=== PATIENT | female | born 1955 | race Caucasian/White ===

== ENCOUNTER 2018-10-29 07:43 | Emergency (ER) | payer BC, MEDICARE ==
[~2018-10-29] VITALS: Ht 162.6 cm; Wt 115.5 kg
--- NOTE | 2018-10-29 08:06 | NUR ---
pt. states she went to her doctor for a medical clearance for eye surgery... doctor told her that she had an abnormal ekg and her blood pressure was elevated 170s/90... pt. states she quit taking her lasix 2 weeks ago, because she felt dehydrated. pressure this am at home was 200/120 so she took 2 blood pressure pills this am... pressure is now 110/59
[2018-10-29 08:47] LABS: ALANINE AMINOTRANSFERASE 20 U/L (12-78); ALBUMIN 3.4 G/DL (3.4-5.0); ALBUMIN/GLOBULIN RATIO 0.9 (1.1-1.5); ALKALINE PHOSPHATASE 102 IU/L (46-116); ANION GAP 11 (8-16); ASPARTATE AMINO TRANSFERASE 14 U/L (10-37); BILIRUBIN,TOTAL 0.6 MG/DL (0.1-1.0); BLOOD UREA NITROGEN 14 MG/DL (7-18); BUN/CREATININE RATIO 17.3 (6.6-38.0); CALCIUM 9.7 MG/DL (8.5-10.1); CHLORIDE 103 MMOL/L (99-107); CREATININE 0.81 MG/DL (0.40-0.90); GLUCOSE 150 MG/DL (70-104); POTASSIUM 3.5 MMOL/L (3.5-5.1); SODIUM 138 MMOL/L (135-145); TOTAL CARBON DIOXIDE 24.3 MMOL/L (24-32); TOTAL PROTEIN 7.2 G/DL (6.4-8.2); eGFR 71 ML/MIN
[2018-10-29 08:54] LABS: PARTIAL THROMBOPLASTIN TIME 29 SECONDS (22-32)
[2018-10-29 08:59] LABS: EOSINOPHILS # (AUTO) 0.2 X10'3 (0-0.9); MEAN CORPUSCULAR HGB CONC 33.5 g/dL (33.0-36.5); MONOCYTES # (AUTO) 0.4 X10'3 (0-0.9); NEUTROPHILS # (AUTO) 3.4 X10'3 (1.8-7.7); PLATELET COUNT 177 X10'3 (140-440)
[2018-10-29 09:01] LABS: BASOPHILS % (AUTO) 0.6 % (0-1); EOSINOPHILS % (AUTO) 2.6 % (0-6); HEMATOCRIT 44.2 % (35.0-45.0); HEMOGLOBIN 14.8 g/dl (12.0-16.0); LYMPHOCYTES % (AUTO) 32.5 % (21-51); MEAN CORPUSCULAR HEMOGLOBIN 32.2 PG (27.0-31.0); MEAN CORPUSCULAR VOLUME 96.1 FL (78-98); MEAN PLATELET VOLUME 12.9 FL (7.4-10.4); MONOCYTES % (AUTO) 7.3 % (2-12); RED BLOOD COUNT 4.59 X10'6 (4.20-5.60); RED CELL DISTRIBUTION WIDTH 13.6 % (11.5-14.5)
[2018-10-29 10:55] VITALS: BP 115/49
== END 2018-10-29 11:01 | disposition home or self-care (01) ==
LOC: ER 07:44
DX: R07.89 Other chest pain (principal); I10 Essential (primary) hypertension; E78.00 Pure hypercholesterolemia, unspecified; E11.9 Type 2 diabetes mellitus without complications; Z95.5 Presence of coronary angioplasty implant and graft
CPT/HCPCS: 36415; 71045; 80053; 82948; 84484; 85025; 85610; 85730; 93005; 99284

== ENCOUNTER 2019-09-30 13:34 | Emergency (ER) | payer BC, MEDICARE ==
[~2019-09-30] VITALS: Ht 160 cm; Wt 114.1 kg
[2019-09-30 13:39] VITALS: BP 132/64
[2019-09-30] MEDS ORDERED: HYDROcodone/acetaminophen 5mg/325mg tablet PO ONE (14:20)
[2019-09-30] MEDS ORDERED: HYDR-3965 PO (15:19)
== END 2019-09-30 15:42 | disposition home or self-care (01) ==
LOC: ER 13:34
DX: S20.212A Contusion of left front wall of thorax, initial encounter (principal); I50.9 Heart failure, unspecified; E78.00 Pure hypercholesterolemia, unspecified; I11.0 Hypertensive heart disease with heart failure; E11.9 Type 2 diabetes mellitus without complications; Z98.61 Coronary angioplasty status; Z79.899 Other long term (current) drug therapy; F17.200 Nicotine dependence, unspecified, uncomplicated; W01.0XXA Fall on same level from slipping, tripping and stumbling without subsequent striking against object, initial encounter; Y93.89 Activity, other specified; Y92.89 Other specified places as the place of occurrence of the external cause; Y99.8 Other external cause status
CPT/HCPCS: 74176; 99284

== ENCOUNTER 2020-10-24 10:53 | Emergency (ER) | payer BC ==
[~2020-10-24] VITALS: Ht 154.9 cm; Wt 114.0 kg
[2020-10-24 11:27] VITALS: BP 179/93
[2020-10-24] MEDS ORDERED: triamcinolone acetonide 40mg/ml inj IJ ONE (14:05)
[2020-10-24] MEDS ORDERED: PRED10TA23 PO (14:07)
[2020-10-24] MEDS ORDERED: PRED20TA PO (14:11)
== END 2020-10-24 14:22 | disposition home or self-care (01) ==
LOC: ER 10:54
DX: L50.9 Urticaria, unspecified (principal); R21 Rash and other nonspecific skin eruption; I11.0 Hypertensive heart disease with heart failure; I50.9 Heart failure, unspecified; E78.00 Pure hypercholesterolemia, unspecified; E11.9 Type 2 diabetes mellitus without complications; Z98.890 Other specified postprocedural states; Z79.899 Other long term (current) drug therapy
CPT/HCPCS: 99283; J3301

== ENCOUNTER 2021-01-03 17:23 | Emergency (ER) | payer BC ==
[~2021-01-03] VITALS: Ht 162.6 cm; Wt 105.7 kg
[2021-01-03 21:13] VITALS: BP 146/71
[2021-01-03] MEDS ORDERED: PRED20TA PO (21:38)
== END 2021-01-03 21:47 | disposition home or self-care (01) ==
LOC: ER 17:23
DX: L50.0 Allergic urticaria (principal); I11.0 Hypertensive heart disease with heart failure; I50.9 Heart failure, unspecified; E78.00 Pure hypercholesterolemia, unspecified; E11.9 Type 2 diabetes mellitus without complications; Z79.899 Other long term (current) drug therapy
CPT/HCPCS: 99283

== ENCOUNTER 2023-02-20 16:01 | Inpatient (IN) | payer BC, MEDICARE, OTHER ==
[~2023-02-20] VITALS: Ht 160 cm; Wt 144.1 kg
[2023-02-20 16:31] LABS: BASOPHILS % (AUTO) 0 % (0-1); EOSINOPHILS # (AUTO) 0.2 X10'3 (0-0.9); EOSINOPHILS % (AUTO) 3.5 % (0-6); HEMATOCRIT 36.3 % (35.0-45.0); HEMOGLOBIN 12.1 g/dl (12.0-16.0); LYMPHOCYTES # (AUTO) 1.8 X10'3 (1.1-4.8); LYMPHOCYTES % (AUTO) 27.2 % (21-51); MEAN CORPUSCULAR HEMOGLOBIN 30.7 PG (27.0-31.0); MEAN CORPUSCULAR HGB CONC 33.4 g/dL (33.0-36.5); MEAN PLATELET VOLUME 11.3 FL (7.4-10.4); MONOCYTES # (AUTO) 0.7 X10'3 (0-0.9); MONOCYTES % (AUTO) 10.9 % (2-12); NEUTROPHILS # (AUTO) 3.8 X10'3 (1.8-7.7); NEUTROPHILS % (AUTO) 58.4 % (42-75); PLATELET COUNT 174 X10'3 (140-440); RED BLOOD COUNT 3.94 X10'6 (4.20-5.60); RED CELL DISTRIBUTION WIDTH 14.2 % (11.5-14.5); WHITE BLOOD COUNT 6.5 X10'3 (4.5-11.0)
[2023-02-20 16:41] LABS: ALANINE AMINOTRANSFERASE 25 U/L (12-78); ALBUMIN 3.5 G/DL (3.4-5.0); ALBUMIN/GLOBULIN RATIO 0.9 (1.1-1.5); ALKALINE PHOSPHATASE 120 IU/L (46-116); ANION GAP 9 (8-16); ASPARTATE AMINO TRANSFERASE 18 U/L (10-37); BILIRUBIN,TOTAL 0.5 MG/DL (0.1-1.0); BLOOD UREA NITROGEN 21 MG/DL (7-18); BUN/CREATININE RATIO 24.7 (10.0-20.0); CALCIUM 9.5 MG/DL (8.5-10.1); CHLORIDE 106 MMOL/L (99-107); CREATININE 0.85 MG/DL (0.40-0.90); GLUCOSE 118 MG/DL (70-104); POTASSIUM 4.1 MMOL/L (3.5-5.1); SODIUM 141 MMOL/L (135-145); TOTAL CARBON DIOXIDE 25.9 MMOL/L (24-32); TOTAL PROTEIN 7.2 G/DL (6.4-8.2); eGFR 66 ML/MIN
[2023-02-20] MEDS ORDERED: aspirin 81mg tab.chew PO ONE (17:55)
[2023-02-20] MEDS ORDERED: nitroGLYCERIN 0.4mg/hour patch TD ONE (17:55)
--- NOTE | 2023-02-20 18:45 | NUR ---
Patient resting comfortably on gurney, she reports no chest pain at this time. Daughter is at bedside.
[2023-02-20] MEDS ORDERED: METO50TA16 PO (19:50)
[2023-02-20] MEDS ORDERED: HYDR-3927 PO (19:50)
[2023-02-20] MEDS ORDERED: ALBU8HFA PO (19:50)
[2023-02-20] MEDS ORDERED: FURO40TA4 PO (19:50)
[2023-02-20] MEDS ORDERED: LOSA100T58 PO (19:50)
[2023-02-20] MEDS ORDERED: FAMO-128 PO (19:50)
[2023-02-20] MEDS ORDERED: INSU100V9 SQ (19:50)
[2023-02-20] MEDS ORDERED: ROSU20TA73 PO (19:50)
[2023-02-20] MEDS ORDERED: INSU100V11 SQ (19:50)
[2023-02-20] MEDS ORDERED: OMEP40CA21 PO (19:50)
[2023-02-20] MEDS ORDERED: AMLO-708 PO (19:50)
[2023-02-20] MEDS ORDERED: VITA-268 PO (19:52)
[2023-02-20] MEDS ORDERED: MULT-1085 PO (19:52)
[2023-02-20] MEDS ORDERED: ASPI-611 PO (19:52)
[2023-02-20] MEDS ORDERED: POTASSIUM GLUCONATE PO (19:53)
--- NOTE | 2023-02-20 20:16 | NUR ---
Patient requesting Tylenol for a headache, per Dr. Airam nunes to give Tylenol 650mg po now.
[2023-02-20] MEDS ORDERED: nitroGLYCERIN 0.4mg SUBLingual tab SL PRN (20:20)
[2023-02-20] MEDS ORDERED: aminophylline 250mg/10ml inj. IV PRN (20:20)
[2023-02-20] MEDS ORDERED: magnesium 4gm in 100ml NS 100 ML IV PRN (20:20)
[2023-02-20] MEDS ORDERED: ondansetron/PF 4mg/2ml inj IV PRN (20:20)
[2023-02-20] MEDS ORDERED: regadenoson 0.4mg/5ml syringe IV PRN (20:20)
[2023-02-20] MEDS ORDERED: glucagon, human recombinant 1mg kit SUBCUT PRN (20:20)
[2023-02-20] MEDS ORDERED: potassium Cl 20 mEq SR tablet PO PRN ×2 (20:20)
[2023-02-20] MEDS ORDERED: dextrose 50%-water 50ml dispensing syringe IV PRN ×2 (20:20)
[2023-02-20] MEDS ORDERED: potassium Cl 40MEQ/1/2NS 520ml 520 ML IV PRN (20:20)
[2023-02-20] MEDS ORDERED: acetaminophen 325mg tablet PO ONE (20:20)
[2023-02-20] MEDS ORDERED: metoprolol tartrate 1mg/ml inj IV PRN (20:20)
[2023-02-20] MEDS ORDERED: PERFLUTREN PROTEIN-A MICROSPHR (Optison) 0.22 MG/ML 3ML VIAL IV ONE (20:20)
[2023-02-20] MEDS ORDERED: mag hydrox/Alum hydrox/simeth 30ml oral suspension PO PRN (20:20)
[2023-02-20] MEDS ORDERED: magnesium hydroxide 30ml (MOM) UD suspension PO PRN (20:20)
[2023-02-20] MEDS ORDERED: DEXTROSE 15 GM of carb/4 tabs (each vial/BOTTLE has 4 tablets) PO PRN ×2 (20:20)
[2023-02-20] MEDS ORDERED: albuterol 2.5 MG/3 ML nebule NEB PRN (20:30)
[2023-02-20] MEDS ORDERED: ipratropium/albuterol 3ml nebule NEB PRN (20:30)
[2023-02-20] MEDS: insulin glargine (Lantus) pen - multi-dose SQ SCH (21:00)
[2023-02-20] MEDS: ROSUVASTATIN CALCIUM 5 MG TABLET PO SCH (21:00)
[2023-02-20] MEDS ORDERED: HYDROXYZINE PAMOATE PO SCH (21:00)
--- NOTE | 2023-02-20 21:08 | NUR ---
moved patient to hosptial bed
[2023-02-20] MEDS: famotidine 20mg tablet PO SCH (21:12)
[2023-02-20] MEDS: hydrOXYzine 25 MG tablet PO SCH (21:12)
--- NOTE | 2023-02-20 22:33 | NUR ---
Removed Nitro patch at patient request, she reports the headache is too uncomfortable
[2023-02-20 23:02] VITALS: PULSE 70; RESP 18; O2SAT 96
[2023-02-21] VITALS (19 sets, daily range): BP systolic 112–179; BP diastolic 39–63; PULSE 65–96; RESP 14–26; TEMP 97.7–98.5; O2SAT 95–99
[2023-02-21] MEDS: heparin, porcine 5000 units/ml vial SQ SCH ×4 (00:08→23:15)
--- NOTE | 2023-02-21 03:02 | NUR ---
Patient says BP cuff gave her hives, appears a little reddened. Per Dr. Alegria give her Benadryl 50mg po now.
[2023-02-21] MEDS ORDERED: diphenhydrAMINE 25mg capsule PO ONE (03:05)
[2023-02-21 03:19] LABS: BASOPHILS % (AUTO) 0.1 % (0-1); EOSINOPHILS # (AUTO) 0.3 X10'3 (0-0.9); EOSINOPHILS % (AUTO) 3.3 % (0-6); HEMATOCRIT 34.9 % (35.0-45.0); HEMOGLOBIN 11.7 g/dl (12.0-16.0); LYMPHOCYTES % (AUTO) 25.9 % (21-51); MEAN CORPUSCULAR HEMOGLOBIN 30.8 PG (27.0-31.0); MEAN CORPUSCULAR HGB CONC 33.6 g/dL (33.0-36.5); MEAN CORPUSCULAR VOLUME 91.8 FL (78-98); MEAN PLATELET VOLUME 11.3 FL (7.4-10.4); MONOCYTES # (AUTO) 0.7 X10'3 (0-0.9); MONOCYTES % (AUTO) 8.5 % (2-12); NEUTROPHILS # (AUTO) 4.8 X10'3 (1.8-7.7); NEUTROPHILS % (AUTO) 62.2 % (42-75); PLATELET COUNT 171 X10'3 (140-440); RED CELL DISTRIBUTION WIDTH 14.2 % (11.5-14.5); WHITE BLOOD COUNT 7.8 X10'3 (4.5-11.0)
[2023-02-21 03:41] LABS: ALANINE AMINOTRANSFERASE 23 U/L (12-78); ALBUMIN 3.4 G/DL (3.4-5.0); ALBUMIN/GLOBULIN RATIO 0.9 (1.1-1.5); ALKALINE PHOSPHATASE 110 IU/L (46-116); ANION GAP 12 (8-16); ASPARTATE AMINO TRANSFERASE 14 U/L (10-37); BILIRUBIN,TOTAL 0.5 MG/DL (0.1-1.0); BLOOD UREA NITROGEN 20 MG/DL (7-18); BUN/CREATININE RATIO 24.4 (10.0-20.0); CALCIUM 9.6 MG/DL (8.5-10.1); CHLORIDE 106 MMOL/L (99-107); CREATININE 0.82 MG/DL (0.40-0.90); GLUCOSE 207 MG/DL (70-104); MAGNESIUM 2.1 MG/DL (1.5-2.4); SODIUM 140 MMOL/L (135-145); TOTAL CARBON DIOXIDE 22.2 MMOL/L (24-32); eGFR 69 ML/MIN
[2023-02-21 04:35] LABS: ANISOCYTOSIS FEW; LARGE PLATELETS MODERATE; PLATELET ESTIMATE NORMAL
--- NOTE | 2023-02-21 06:28 | NUR ---
attempted report, INVENTORY COORDINATOR to call back
--- NOTE | 2023-02-21 06:48 | NUR ---
Patient in room ED 1. I have received report from BRANDEN Salazar and had the opportunity to ask questions and assume patient care.
[2023-02-21] MEDS: K and/or MAG REPLACEMENT MC SCH ×2 (08:00→20:00)
[2023-02-21] MEDS: pantoprazole 40mg Tablet.DR PO SCH (08:02)
[2023-02-21] MEDS: acetaminophen 325mg tablet PO PRN (08:07)
[2023-02-21] MEDS: multivitamins, therapeutics tablet PO SCH (09:55)
[2023-02-21] MEDS: docusate sod 100mg capsule PO SCH ×2 (09:55→20:00)
[2023-02-21] MEDS: aspirin 81mg, enteric-coated 1 TAB TABLET.DR PO SCH (09:55)
[2023-02-21] MEDS: vitamin B comp w/Vit. C tab 1 TAB TABLET PO SCH (09:55)
[2023-02-21] MEDS: furosemide 10 MG/1 ML 10ml inj IV SCH ×2 (09:58→20:39)
--- NOTE | 2023-02-21 13:24 | NUR ---
Pt returned back from [facility]. Pt in NAD. Pt states "I'm hungry." This typewriter tester will notify MD of pt's return to floor.
[2023-02-21] MEDS: amLODIPine 5mg tablet PO SCH (13:44)
[2023-02-21] MEDS: metoprolol tartrate 50mg tablet PO SCH ×2 (13:44→20:39)
[2023-02-21] MEDS: losartan 50mg tablet PO SCH (13:45)
[2023-02-21] MEDS: hydrocortisone 1% cream 28gm TP SCH ×2 (14:56→20:37)
[2023-02-21] MEDS: insulin Lispro (HumaLOG) vial - multi-dose SQ SCH ×3 (16:41→23:02)
--- NOTE | 2023-02-21 17:19 | NUR ---
Message: RJ [email or web address], LISSY REPORT IS AVAILABLE FOR [id number], THX Custom Responses: promotional table spacer Transaction number: [id number] CLOSE [X] SEND ANOTHER PAGE Thank you for visiting [facility] promotional table spacer
--- NOTE | 2023-02-21 18:28 | NUR ---
Problems reprioritized. Patient report given, questions answered & plan of care reviewed with BRANDNE Yusuf.
[2023-02-21] MEDS: budesonide 0.5mg/2ml UD nebule IH SCH (19:50)
[2023-02-21] MEDS: hydrOXYzine 25 MG tablet PO SCH (20:40)
[2023-02-21] MEDS: famotidine 20mg tablet PO SCH (20:40)
[2023-02-21] MEDS: ROSUVASTATIN CALCIUM 5 MG TABLET PO SCH (20:40)
[2023-02-21] MEDS: insulin glargine (Lantus) pen - multi-dose SQ SCH (23:03)
[2023-02-22] VITALS (7 sets, daily range): BP systolic 119–140; BP diastolic 41–45; PULSE 63–76; RESP 16–19; TEMP 97.6–98; O2SAT 92–96
[2023-02-22] MEDS: acetaminophen 325mg tablet PO PRN (04:18)
--- NOTE | 2023-02-22 06:23 | NUR ---
Problems reprioritized. Patient report given, questions answered & plan of care reviewed with MACKENZIE. Addendum: 02/22/23 at 0623 by Brayden Oden RN Amended: Links added.
--- NOTE | 2023-02-22 06:28 | NUR ---
Patient in room PCU 3027. I have received report from BRANDEN Yusuf and had the opportunity to ask questions and assume patient care.
[2023-02-22 06:54] LABS: BASOPHILS % (AUTO) 0 % (0-1); EOSINOPHILS # (AUTO) 0.2 X10'3 (0-0.9); EOSINOPHILS % (AUTO) 3.6 % (0-6); HEMOGLOBIN 11.8 g/dl (12.0-16.0); LYMPHOCYTES # (AUTO) 1.7 X10'3 (1.1-4.8); LYMPHOCYTES % (AUTO) 27.8 % (21-51); MEAN CORPUSCULAR HEMOGLOBIN 30.2 PG (27.0-31.0); MEAN CORPUSCULAR HGB CONC 32.9 g/dL (33.0-36.5); MEAN CORPUSCULAR VOLUME 91.8 FL (78-98); MEAN PLATELET VOLUME 11.5 FL (7.4-10.4); MONOCYTES # (AUTO) 0.8 X10'3 (0-0.9); MONOCYTES % (AUTO) 13.8 % (2-12); NEUTROPHILS # (AUTO) 3.3 X10'3 (1.8-7.7); NEUTROPHILS % (AUTO) 54.8 % (42-75); PLATELET COUNT 166 X10'3 (140-440); RED BLOOD COUNT 3.92 X10'6 (4.20-5.60); RED CELL DISTRIBUTION WIDTH 14.5 % (11.5-14.5)
[2023-02-22] MEDS: budesonide 0.5mg/2ml UD nebule IH SCH (07:19)
[2023-02-22 07:23] LABS: ALANINE AMINOTRANSFERASE 22 U/L (12-78); ALBUMIN 3.2 G/DL (3.4-5.0); ALBUMIN/GLOBULIN RATIO 0.9 (1.1-1.5); ALKALINE PHOSPHATASE 116 IU/L (46-116); ANION GAP 11 (8-16); ASPARTATE AMINO TRANSFERASE 18 U/L (10-37); BILIRUBIN,TOTAL 0.5 MG/DL (0.1-1.0); BLOOD UREA NITROGEN 22 MG/DL (7-18); BUN/CREATININE RATIO 21.6 (10.0-20.0); CALCIUM 8.7 MG/DL (8.5-10.1); CHLORIDE 102 MMOL/L (99-107); CREATININE 1.02 MG/DL (0.40-0.90); GLUCOSE 145 MG/DL (70-104); MAGNESIUM 1.9 MG/DL (1.5-2.4); POTASSIUM 3.3 MMOL/L (3.5-5.1); SODIUM 138 MMOL/L (135-145); TOTAL CARBON DIOXIDE 25.3 MMOL/L (24-32); TOTAL PROTEIN 6.7 G/DL (6.4-8.2); eGFR 54 ML/MIN
[2023-02-22] MEDS: pantoprazole 40mg Tablet.DR PO SCH (07:38)
[2023-02-22] MEDS: K and/or MAG REPLACEMENT MC SCH (07:44)
[2023-02-22] MEDS: furosemide 10 MG/1 ML 10ml inj IV SCH (07:55)
[2023-02-22] MEDS: docusate sod 100mg capsule PO SCH (07:56)
[2023-02-22] MEDS: metoprolol tartrate 50mg tablet PO SCH (07:56)
[2023-02-22] MEDS: multivitamins, therapeutics tablet PO SCH (07:56)
[2023-02-22] MEDS: aspirin 81mg, enteric-coated 1 TAB TABLET.DR PO SCH (07:56)
[2023-02-22] MEDS: vitamin B comp w/Vit. C tab 1 TAB TABLET PO SCH (07:56)
[2023-02-22] MEDS: losartan 50mg tablet PO SCH (07:56)
[2023-02-22] MEDS: amLODIPine 5mg tablet PO SCH (07:57)
[2023-02-22] MEDS: heparin, porcine 5000 units/ml vial SQ SCH (07:57)
[2023-02-22] MEDS: hydrocortisone 1% cream 28gm TP SCH (08:43)
[2023-02-22] MEDS: insulin Lispro (HumaLOG) vial - multi-dose SQ SCH ×2 (09:59→13:01)
[2023-02-22] MEDS ORDERED: BUDE10.22 INH (13:51)
--- NOTE | 2023-02-22 16:30 | NUR ---
Pt AOX4, VSS on RA. Pt denies pain. Pt's PIV removed with cannula intact. This expert medical writer reviewed discharge paperwork with patient and daughter at bedside. Pt's questions answered. Pt in NAD. Pt discharged to daughter's personal vehicle via wheelchair.
== END 2023-02-22 16:40 | disposition home or self-care (01) | DRG 291 ==
LOC: ER 16:01 → ED HOLD 20:28 → PCU 3S 02-21 06:55
PROVIDERS: ADMIT Family Medicine; ATTEND Family Medicine
PROC: 4A02XM4 Measurement of Cardiac Total Activity, External Approach (ICD-10-PCS; principal; 2023-02-21)
PROC: 3E033HZ Introduction of Radioactive Substance into Peripheral Vein, Percutaneous Approach (ICD-10-PCS; 2023-02-21)
DX: I11.0 Hypertensive heart disease with heart failure (principal); I50.33 Acute on chronic diastolic (congestive) heart failure; Z68.43 Body mass index [BMI] 50.0-59.9, adult; I25.110 Atherosclerotic heart disease of native coronary artery with unstable angina pectoris; E78.00 Pure hypercholesterolemia, unspecified; E11.9 Type 2 diabetes mellitus without complications; I27.81 Cor pulmonale (chronic); G47.33 Obstructive sleep apnea (adult) (pediatric); E66.01 Morbid (severe) obesity due to excess calories; J44.9 Chronic obstructive pulmonary disease, unspecified; Z90.710 Acquired absence of both cervix and uterus; Z87.891 Personal history of nicotine dependence; Z79.4 Long term (current) use of insulin
CPT/HCPCS: 36415; 71045; 78452; 80053; 82948; 83735; 83880; 84484; 85008; 85025; 87081; 93017; 93306; 94640; 94760; 99285; A9500; G0378; J1644; J1815; J1940; J2785; Q0163; Q0177

== ENCOUNTER 2024-10-23 21:16 | Emergency (ER) | payer MEDICARE, MEDICAID ==
[~2024-10-23] VITALS: Ht 165.1 cm; Wt 133.0 kg
[~2024-10-23 21:16] MED LIST: ALBU8HFA PO; AMLO-708 PO; ASPI-611 PO; BUDE10.22 INH; FAMO-128 PO; FURO40TA4 PO; HYDR-3927 PO; INSU100V11 SQ; INSU100V9 SQ; LOSA100T58 PO; METO50TA16 PO; MULT-1085 PO; OMEP40CA21 PO; POTASSIUM GLUCONATE PO; ROSU20TA98 PO; VITA-268 PO
[2024-10-23 21:31] VITALS: BP 174/62; PULSE 78; O2SAT 99
[2024-10-23 22:03] LABS: BASOPHILS % (AUTO) 0 % (0-1); EOSINOPHILS # (AUTO) 0.2 X10'3 (0-0.9); EOSINOPHILS % (AUTO) 2.4 % (0-6); HEMATOCRIT 38.6 % (35.0-45.0); HEMOGLOBIN 12.4 g/dl (12.0-16.0); LYMPHOCYTES # (AUTO) 2.7 X10'3 (1.1-4.8); LYMPHOCYTES % (AUTO) 33.7 % (21-51); MEAN CORPUSCULAR HEMOGLOBIN 31.4 PG (27.0-31.0); MEAN CORPUSCULAR HGB CONC 32.2 g/dL (33.0-36.5); MEAN CORPUSCULAR VOLUME 97.4 FL (78-98); MEAN PLATELET VOLUME 11.3 FL (7.4-10.4); MONOCYTES # (AUTO) 0.8 X10'3 (0-0.9); MONOCYTES % (AUTO) 9.4 % (2-12); NEUTROPHILS # (AUTO) 4.4 X10'3 (1.8-7.7); NEUTROPHILS % (AUTO) 54.5 % (42-75); PLATELET COUNT 199 X10'3 (140-440); RED BLOOD COUNT 3.96 X10'6 (4.20-5.60); WHITE BLOOD COUNT 8.1 X10'3 (4.5-11.0)
[2024-10-23 22:06] LABS: ALBUMIN 3.6 G/DL (3.4-5.0); ANION GAP 11 (8-16); BLOOD UREA NITROGEN 24 MG/DL (7-18); BUN/CREATININE RATIO 25.5 (10.0-20.0); CALCIUM 9.2 MG/DL (8.5-10.1); CHLORIDE 100 MMOL/L (99-107); CREATININE 0.94 MG/DL (0.40-0.90); GLUCOSE 326 MG/DL (70-104); POTASSIUM 3.4 MMOL/L (3.5-5.1); SODIUM 137 MMOL/L (135-145); TOTAL CARBON DIOXIDE 26.3 MMOL/L (24-32); eCRCL 49 ML/MIN; eGFR 59 ML/MIN
[2024-10-23] MEDS: normal saline 1000ml 1,000 ML IV ONE (22:11)
[2024-10-23] MEDS: potassium Cl 20 mEq SR tablet PO STA (22:46)
[2024-10-23] MEDS: ondansetron 4mg rapidly disintigrating tab PO ONE (22:46)
[2024-10-24 00:22] VITALS: TEMP 97.4
[2024-10-24 00:27] VITALS: RESP 16
[2024-10-24 00:39] LABS: BILIRUBIN,URINE NEGATIVE (Neg); CLARITY,URINE CLEAR (Clear); COLOR,URINE YELLOW (Yellow); GLUCOSE, URINE >=1000 mg/dl (Neg); KETONES,URINE NEGATIVE (Neg); LEUKOCYTE ESTERASE ,URINE NEGATIVE (Neg); NITRITES, URINE NEGATIVE (Neg); OCCULT BLOOD,URINE NEGATIVE (Neg); PH,URINE 5.5 (4.8-8.0); PROTEIN,URINE NEGATIVE (Neg); UROBILINOGEN,URINE 0.2 E.U/dL (0.2-1.0)
[2024-10-24 00:43] LABS: UA COLLECTION TYPE CLN CATCH MIDSTREAM
[2024-10-24 00:44] LABS: BACTERIA,URINE FEW /HPF (Neg); RBC,URINE NONE SEEN /HPF (0-2); SQUAMOUS EPITHELIAL CELL,UR FEW /LPF (FEW); TRANSITIONAL EPI CELLS,URINE FEW /HPF; WBC,URINE 0-4 /HPF (0-4)
== END 2024-10-24 00:29 | disposition home or self-care (01) ==
LOC: ER 21:17
DX: E11.65 Type 2 diabetes mellitus with hyperglycemia (principal); E87.6 Hypokalemia; E78.00 Pure hypercholesterolemia, unspecified; I11.0 Hypertensive heart disease with heart failure; I25.10 Atherosclerotic heart disease of native coronary artery without angina pectoris; I50.9 Heart failure, unspecified; J44.9 Chronic obstructive pulmonary disease, unspecified
CPT/HCPCS: 36415; 80048; 81001; 82948; 84145; 85025; 96360; 96361; 99284; J7030

== ENCOUNTER 2025-05-10 23:20 | Emergency (ER) | payer MEDICARE, MEDICAID ==
[~2025-05-10] VITALS: Ht 162.6 cm; Wt 147.4 kg
[2025-05-10 23:31] VITALS: BP 133/50; PULSE 71; O2SAT 96
[2025-05-10] MEDS: ketorolac trometh 30MG/ML vial 30 MG/ML VIAL IM ONE (23:47)
--- NOTE | 2025-05-11 01:34 | Physician Documentation ---
History of Present Illness General Chief Complaint: Back Pain Stated Complaint: BACK PAIN Time Seen by MD: 01:33 Primary Medical Doctor: Jacy History of Present Illness Initial Comments The patient is a 70-year-old female with a history of CHF presents to the emergency room with sudden onset left lower back pain. Patient states she has been scrubbing the floor today and she developed significant left lower back pain around 1900 this evening she states she has pain when she moves on the left side. She denies any numbness or bowel or bladder problems she denies any significant significant history of back pain like this in the past. Patient denies any fevers chills nausea or vomiting or urinary symptoms. Medication Reconciliation Allergies: Coded Allergies: No Known Allergies (Unverified , 10/23/24) Scheduled Amlodipine Besylate (Amlodipine Besylate), 1 TAB PO DAILY, (Reported) Aspirin (Aspir 81), 1 TAB PO DAILY, (Reported) Budesonide/Formoterol Fumarate (Symbicort 80-4.5 Mcg Inhaler), 2 PUFFS INH Q12H Famotidine (Pepcid), 1 TAB PO HS, (Reported) Furosemide (Furosemide), 1 TAB PO DAILY, (Reported) Hydroxyzine Pamoate (Hydroxyzine Pamoate), 1 CAP PO HS, (Reported) Insulin Glargine,Hum.rec.anlog (Lantus), 65 UNITS SQ QAM, (Reported) Losartan Potassium (Losartan Potassium), 1 TAB PO DAILY, (Reported) Metoprolol Tartrate (Metoprolol Tartrate), 1 TAB PO BID, (Reported) Multivitamin (Multi Vitamin Daily), 1 TAB PO DAILY, (Reported) Omeprazole (Prilosec), 1 CAP PO QAM, (Reported) Rosuvastatin Calcium (Rosuvastatin Calcium), 1 TAB PO HS, (Reported) Vitamin B Complex (B Complex), 1 TAB PO DAILY, (Reported) [Potassium Gluconate], Unknown Dose PO DAILY, (Reported) Scheduled PRN Hydrocodone Bit/Acetaminophen (Hydrocodone-Apap 10-325 Tablet), 1 TABLET PO Q8H PRN for pain Insulin Lispro (Humalog), 20-25 UNITS SQ ACHS PRN for SLIDING SCALE, (Reported) albuterol inhaler (Pro-Air Inhaler), 1-2 PUFFS PO Q4H PRN for shortness of breath, (Reported) Past Medical History Past Medical History: Coronary Artery Disease, Congestive Heart Failure, High Cholesterol, Hypertension, COPD, Diabetes Past Surgical History: angioplasty Alcohol Use: Rarely Drug Use: none Lives with: Family Lives In: Home Review of Systems All Other Systems at this time: Reviewed and Negative Physical Exam Physical Exam Vital Signs: Temperature: 97.8, Heart Rate: 71, Respiratory Rate: 18, BP: 133/50, Pulse Oximetry: 96, Weight: 147.400 Physical Exam VITALS: Reviewed and as above. GENERAL: Alert, no apparent distress. HEENT: Normocephalic, atraumatic, PERRL, EOMI, dry mucosa, no erythema RESPIRATORY: Lungs clear, normal breath sounds, no respiratory distress. CHEST: No accessory muscle use, no retractions CV: Regular rate, rhythm, no edema, no murmur, No: JVD GI: Soft, non-tender, bowels sounds present, no rebound, guarding, or rigidity BACK: Tenderness in the lower lumbar region in the left paraspinal and over the SI joint on the left. MUSCULOSKELETAL: No deformities, no edema SKIN: Warm and dry, no rash NEURO: Oriented x4, No motor or sensory deficit PSYCH: Normal mood and affect, no agitation Progress Results/Orders Results/Orders Completed Orders - LORI TURCIOS MD Hydrocodone/Apap 10/325 ([place] 10/325mg (05/11/25 01:45) Vital Signs 05/10/25 05/10/25 05/11/25 05/11/25 23:31 23:47 01:45 01:50 Temp 97.8 97.8 Pulse 71 Resp 18 18 18 B/P (MAP) 133/50 Pulse Ox 96 Medical Decision Making Additional information obtaine: old records Findings Patient with reproducible back pain the patient has no high-risk features for cord compression the patient is able to ambulate patient has normal muscular strength and she has no bowel or bladder incontinence. Patient was given an a [place] with some improvement in her pain she will be given a short course of [place] for her pain. Prior hospitalizations have been reviewed. The patient's pulse oximetry was interpreted as normal the patient will be discharged Differential Diagnosis Musculoskeletal back pain, pinched nerve, back fracture, pyelonephritis, Departure Disposition: HOME / SELF CARE / HOMELESS Impression: Primary Impression: Low back pain Qualified Codes: M54.50 - Low back pain, unspecified Discharge Instructions: Acute Back Pain, Adult Referrals: NO PRIMARY CARE PROVIDER (PCP) Prescriptions Hydrocodone Bit/Acetaminophen (Hydrocodone-Apap 10-325 Tablet) 10mg/325mg Tablet 1 TABLET PO Q8H PRN for pain, #10 TABLET Prov: LORI TURCIOS MD 05/11/25 Signature Scribe Signature: no scribe Attestation: The note accurately reflects work and decisions made by me.Lori Turcios MD 05/13/25 07:33 LORI TURCIOS MD May 11, 2025 01:34
[2025-05-11 01:45] VITALS: TEMP 97.8
[2025-05-11] MEDS ORDERED: HYDR-3973 PO (01:46)
[2025-05-11 01:50] VITALS: RESP 18
[2025-05-11] MEDS: HYDROcodone/acetaminophen 10/325mg tab PO ONE (01:50)
== END 2025-05-11 01:52 | disposition home or self-care (01) ==
LOC: ER 23:20
DX: M54.50 Low back pain, unspecified (principal); E78.00 Pure hypercholesterolemia, unspecified; E11.9 Type 2 diabetes mellitus without complications; I11.0 Hypertensive heart disease with heart failure; I50.9 Heart failure, unspecified; I25.10 Atherosclerotic heart disease of native coronary artery without angina pectoris; J44.9 Chronic obstructive pulmonary disease, unspecified; Z79.899 Other long term (current) drug therapy; Z79.82 Long term (current) use of aspirin
CPT/HCPCS: 96372; 99283; J1885